=== PATIENT | female | born 1970 | race American Indian/Alaskan Native ===

== ENCOUNTER 2017-02-15 20:17 | Emergency (ER) | payer BC ==
[2017-02-16] MEDS ORDERED: DECADRON IV ONE ×2 (00:49→00:52)
[2017-02-16] MEDS ORDERED: TORADOL IV ONE (00:49)
[2017-02-16] MEDS ORDERED: NACL 0.9% 1000 ML 1,000 ML IV ONE (00:49)
[2017-02-16] MEDS ORDERED: MORPHINE IV ONE (00:49)
[2017-02-16] MEDS ORDERED: BENADRYL IV ONE (00:49)
[2017-02-16] MEDS ORDERED: REGLAN IV ONE (00:51)
[2017-02-16 02:33] VITALS: BP 132/80
--- NOTE | 2017-02-16 03:18 | Emergency Department Report ---
HPI - General Chief Complaint: Allergic Reaction ED Past Medical Hx - Past Medical History Hx Hypertension: Yes Additional medical history: lupus. MIXED CONNECTIVE TISSUE DISEASE. OBESITY - Surgical History Additional Surgical History: TUBAL LIGATION. HYSTERECTOMY. . KIDNEY BIOPSY - Social History Smoking Status: Never Smoker Substance Use Type: None - Medications Home Medications: Home Medications Medication Instructions Recorded Confirmed Last Taken Type Azithromycin [Zithromax TAB] 500 mg PO QDAY #3 tablet 03/25/15 Unknown Rx Prednisone [predniSONE 10 mg 10 mg PO .TAPER #1 tab.ds.pk 03/25/15 Unknown Rx (6-Day Pack, 21 Tabs)] hydrOXYzine PAMOATE [Vistaril] 25 mg PO Q6HR PRN #10 capsule 03/25/15 Unknown Rx oxyCODONE /ACETAMINOPHEN [Percocet 1 tab PO Q6HR PRN #14 tablet 03/25/15 Unknown Rx 5/325] methylPREDNISolone [Medrol] 4 mg PO QDAY #1 tab.ds.pk 10/06/15 Unknown Rx oxyCODONE /ACETAMINOPHEN [Percocet 1 tab PO Q6HR PRN #10 tablet 10/06/15 Unknown Rx 5/325] ED Review of Systems ROS: Stated complaint: POSS ALLERGIC REACTION/LIPS SWOLLEN/THROAT SWELLIN Other details as noted in HPI Physical Exam - Physical Exam Vital Signs: Vital Signs 02/15/17 02/16/17 02/16/17 20:39 01:30 02:32 Temperature 99.8 F H 98.2 F Pulse Rate 90 90 Respiratory 18 16 16 Rate Blood Pressure 162/106 Blood Pressure 132/80 [Left] O2 Sat by Pulse 99 96 Oximetry ED Course Vital Signs 02/15/17 02/16/17 02/16/17 20:39 01:30 02:32 Temperature 99.8 F H 98.2 F Pulse Rate 90 90 Respiratory 18 16 16 Rate Blood Pressure 162/106 Blood Pressure 132/80 [Left] O2 Sat by Pulse 99 96 Oximetry Critical care attestation.: If time is entered above; I have spent that time in minutes in the direct care of this critically ill patient, excluding procedure time. ED Disposition Condition: Stable Referrals: CY NICHOLSON MD [Primary Care Provider] - 3-5 Days
--- NOTE | 2017-02-16 03:19 | Emergency Department Report ---
ED Allergic Reaction HPI - General Chief complaint: Allergic Reaction Stated complaint: POSS ALLERGIC REACTION/LIPS SWOLLEN/THROAT SWELLIN Source: patient Mode of arrival: Ambulatory Limitations: No Limitations - History of Present Illness Initial Comments: 46 year old female presents to ED with facial/lip swelling x1 day. patient states she is unsure why she is having allergic reaction. patient is stable, neurologically intact and in no acute distress. patient denies diff breathing. MD Complaint: allergic reaction, facial swelling -: Sudden Exposure: unknown Symptoms: facial swelling, lip swelling. denies: difficulty swallowing, difficulty breathing, syncopy, dizziness, nausea, vomiting Severity: mild Treatment Prior to Arrival: benadryl - Related Data Previous Rx's Medication Instructions Recorded Last Taken Type Azithromycin [Zithromax TAB] 500 mg PO QDAY #3 tablet 03/25/15 Unknown Rx Prednisone [predniSONE 10 mg 10 mg PO .TAPER #1 tab.ds.pk 03/25/15 Unknown Rx (6-Day Pack, 21 Tabs)] hydrOXYzine PAMOATE [Vistaril] 25 mg PO Q6HR PRN #10 capsule 03/25/15 Unknown Rx oxyCODONE /ACETAMINOPHEN [Percocet 1 tab PO Q6HR PRN #14 tablet 03/25/15 Unknown Rx 5/325] methylPREDNISolone [Medrol] 4 mg PO QDAY #1 tab.ds.pk 10/06/15 Unknown Rx oxyCODONE /ACETAMINOPHEN [Percocet 1 tab PO Q6HR PRN #10 tablet 10/06/15 Unknown Rx 5/325] Allergies Allergy/AdvReac Type Severity Reaction Status Date / Time acetaminophen [From Lortab] Allergy Itching Verified 10/06/15 10:33 cephalexin monohydrate Allergy Itching Verified 02/15/17 20:39 [From Keflex] ciprofloxacin [From Cipro] Allergy Rash Verified 02/15/17 20:39 ciprofloxacin HCl Allergy Rash Verified 02/15/17 20:39 [From Cipro] clindamycin Allergy Rash Verified 10/06/15 10:33 doxycycline Allergy Rash Verified 02/15/17 20:39 hydrocodone bitartrate Allergy Itching Verified 10/06/15 10:33 [From Lortab] prednisone Allergy Unknown Verified 10/06/15 10:33 Sulfa (Sulfonamide Allergy Swelling Verified 10/06/15 10:33 Antibiotics) aspartame AdvReac Unknown Verified 10/06/15 10:33 erythromycin base AdvReac Rash Verified 10/06/15 10:33 red dye AdvReac CHEST HURTS Verified 10/06/15 10:33 ED Review of Systems ROS: Stated complaint: POSS ALLERGIC REACTION/LIPS SWOLLEN/THROAT SWELLIN Other details as noted in HPI Constitutional: denies: chills Eyes: denies: eye pain, eye discharge, vision change ENT: other (lip swelling). denies: ear pain, throat pain Respiratory: denies: cough, shortness of breath, wheezing Cardiovascular: denies: chest pain, palpitations Endocrine: no symptoms reported Gastrointestinal: denies: abdominal pain, nausea, vomiting, diarrhea Genitourinary: denies: urgency, dysuria, discharge Musculoskeletal: denies: back pain, joint swelling, arthralgia Skin: denies: rash, lesions Neurological: denies: weakness, numbness, paresthesias, confusion, abnormal gait , vertigo Psychiatric: denies: anxiety, depression Hematological/Lymphatic: denies: easy bleeding, easy bruising ED Past Medical Hx - Past Medical History Hx Hypertension: Yes Additional medical history: lupus. MIXED CONNECTIVE TISSUE DISEASE. OBESITY - Surgical History Additional Surgical History: TUBAL LIGATION. HYSTERECTOMY. . KIDNEY BIOPSY - Social History Smoking Status: Never Smoker Substance Use Type: None - Medications Home Medications: Home Medications Medication Instructions Recorded Confirmed Last Taken Type Azithromycin [Zithromax TAB] 500 mg PO QDAY #3 tablet 03/25/15 Unknown Rx Prednisone [predniSONE 10 mg 10 mg PO .TAPER #1 tab.ds.pk 03/25/15 Unknown Rx (6-Day Pack, 21 Tabs)] hydrOXYzine PAMOATE [Vistaril] 25 mg PO Q6HR PRN #10 capsule 03/25/15 Unknown Rx oxyCODONE /ACETAMINOPHEN [Percocet 1 tab PO Q6HR PRN #14 tablet 03/25/15 Unknown Rx 5/325] methylPREDNISolone [Medrol] 4 mg PO QDAY #1 tab.ds.pk 10/06/15 Unknown Rx oxyCODONE /ACETAMINOPHEN [Percocet 1 tab PO Q6HR PRN #10 tablet 10/06/15 Unknown Rx 5/325] ED Physical Exam - General Limitations: No Limitations General appearance: alert, in no apparent distress - Head Head exam: Present: atraumatic, normocephalic - Eye Eye exam: Present: normal appearance, EOMI Pupils: Present: normal accommodation - ENT ENT exam: Present: normal exam, mucous membranes moist, other (no facial/oral/ tonsilar swelling noted on examination. patient states she took benadryl prior to arrival and swelling has decreased) - Neck Neck exam: Present: normal inspection, full ROM. Absent: tenderness - Respiratory Respiratory exam: Present: normal lung sounds bilaterally. Absent: respiratory distress, wheezes, rales, rhonchi, stridor, decreased breath sounds - Cardiovascular Cardiovascular Exam: Present: regular rate, normal rhythm. Absent: systolic murmur, diastolic murmur, rubs, gallop - GI/Abdominal GI/Abdominal exam: Present: soft, normal bowel sounds. Absent: distended, tenderness, guarding - Extremities Exam Extremities exam: Present: normal inspection, full ROM. Absent: tenderness - Back Exam Back exam: Present: normal inspection, full ROM. Absent: tenderness - Neurological Exam Neurological exam: Present: alert, oriented X3, normal gait - Psychiatric Psychiatric exam: Present: normal affect, normal mood - Skin Skin exam: Present: warm, dry, intact, normal color. Absent: rash ED Course Vital Signs 02/15/17 02/16/17 02/16/17 20:39 01:30 02:32 Temperature 99.8 F H 98.2 F Pulse Rate 90 90 Respiratory 18 16 16 Rate Blood Pressure 162/106 Blood Pressure 132/80 [Left] O2 Sat by Pulse 99 96 Oximetry ED Medical Decision Making - Medical Decision Making 46 year old female presents to ED with facial/oral swelling x1 day. patient states swelling has decreased prior to arrival to ED today due to her taking OTC benadryl. patient states she has history of migraines, and lupus.patient is stable, neurologically intact and in no acute distress. patient has had IV steroids, IV reglan, IV benadryl, IV toradol and IV saline. patient states she feels better and is ready to go home. Critical care attestation.: If time is entered above; I have spent that time in minutes in the direct care of this critically ill patient, excluding procedure time. ED Disposition Clinical Impression: Allergic reaction Qualifiers: Encounter type: initial encounter Qualified Code(s): T78.40XA - Allergy, unspecified, initial encounter Disposition: DC-01 TO HOME OR SELFCARE Is pt being admited?: No Does the pt Need Aspirin: No Condition: Stable Instructions: Allergies (ED) Referrals: CY NICHOLSON MD [Primary Care Provider] - 3-5 Days
== END 2017-02-16 03:29 | disposition home or self-care (01) ==
LOC: ED 20:17
DX: T78.40XA Allergy, unspecified, initial encounter (principal); I10 Essential (primary) hypertension; Z98.51 Tubal ligation status; Z90.710 Acquired absence of both cervix and uterus; Z88.2 Allergy status to sulfonamides; Z88.1 Allergy status to other antibiotic agents; Z88.8 Allergy status to other drugs, medicaments and biological substances
CPT/HCPCS: 96361; 96374; 96375; 99282; J1100; J1200; J1885; J2765; J7030

== ENCOUNTER 2017-02-20 10:41 | Emergency (ER) | payer BC ==
[2017-02-20 11:36] LABS: Basophils % (Auto) 0.8 % (0.0-1.8); Eosinophils % (Auto) 1.3 % (0.0-4.3); Hematocrit 36.5 % (30.3-42.9); Hemoglobin 12.2 gm/dl (10.1-14.3); Mean Corpuscular HGB Conc 33 % (30-34); Mean Corpuscular Hemoglobin 29 pg (28-32); Mean Corpuscular Volume 88 fl (79-97); Platelet Count 197 K/mm3 (140-440); Red Blood Count 4.14 M/mm3 (3.65-5.03); Red Cell Distribution Width 14.2 % (13.2-15.2); White Blood Count 6.3 K/mm3 (4.5-11.0)
[2017-02-20 11:53] LABS: Alanine Aminotransferase 17 units/L (7-56); Albumin 4.5 g/dL (3.9-5); Albumin/Globulin Ratio 1.3 %; Alkaline Phosphatase 81 units/L (35-129); Anion Gap 18 mmol/L; Blood Urea Nitrogen 8 mg/dL (7-17); Calcium 9.7 mg/dL (8.4-10.2); Carbon Dioxide 29 mmol/L (22-30); Chloride 100.1 mmol/L (98-107); Glucose 151 mg/dL (65-100); Potassium 3.3 mmol/L (3.6-5.0); Sodium 144 mmol/L (137-145); Total Protein 8.1 g/dL (6.3-8.2)
[2017-02-20 11:57] LABS: Urine Drugs of Abuse Note Disclamer
[2017-02-20 12:11] LABS: Bacteria,Urine 1+ /HPF (Negative); Bilirubin,Urine NEG (Negative); Blood,Urine NEG (Negative); Ketones,Urine NEG (Negative); Leukocyte Esterase,Urine NEG (Negative); Mucus,Urine FEW /HPF; Nitrite,Urine NEG (Negative); Protein,Urine <15 mg/dL mg/dL (Negative); Urobilinogen,Urine < 2.0 mg/dL (<2.0)
[2017-02-20 15:29] VITALS: BP 191/110
== END 2017-02-20 19:30 | disposition left against medical advice (07) ==
LOC: ED 10:41
DX: R03.0 Elevated blood-pressure reading, without diagnosis of hypertension (principal); R07.9 Chest pain, unspecified; Z53.21 Procedure and treatment not carried out due to patient leaving prior to being seen by health care provider
CPT/HCPCS: 36415; 80053; 80307; 81001; 82140; 83735; 84443; 85025; 93005; 93010; G0480; 80320

== ENCOUNTER 2017-11-17 13:09 | Emergency (ER) | payer SELFPAY ==
[2017-11-17 16:10] LABS: Bilirubin,Urine NEG (Negative); Blood,Urine NEG (Negative); Color,Urine Amber (Yellow); Mucus,Urine 2+ /HPF; Urobilinogen,Urine < 2.0 mg/dL (<2.0)
[2017-11-17] MEDS ORDERED: DECADRON IV ONE (19:03)
[2017-11-17] MEDS ORDERED: TORADOL IV ONE (19:03)
[2017-11-17] MEDS ORDERED: BENADRYL IV ONE ×2 (19:05→20:28)
--- NOTE | 2017-11-17 19:41 | Cat Scan Report ---
FINAL REPORT EXAM: CT ABDOMEN PELVIS WO CON HISTORY: rlq pelvic pain TECHNIQUE: Spiral CT scanning of the abdomen and pelvis. No oral or IV contrast administered. Multiplanar reformations. PRIORS: 06 October 2015. FINDINGS: Abdomen: Examination limited due to lack of contrast administration. Visualized lung bases show mild atelectatic change or scarring in the right lung base. No radiopaque gallstones. Liver grossly unremarkable. Spleen grossly unremarkable. Pancreas shows diffuse fatty infiltration without focal abnormality. Kidneys grossly unremarkable. Adrenal glands grossly unremarkable. Pelvis: Bowel grossly unremarkable, with moderate-large amount of retained stool. Appendix within normal limits. No significant free peritoneal fluid or loculated fluid collection. Abdominal aorta non-aneurysmal. Uterus surgically absent. IMPRESSION: 1. No acute findings. 2. Findings suggestive of constipation.
--- NOTE | 2017-11-17 20:27 | Emergency Department Report ---
HPI - General Chief Complaint: Urogenital-Female Time Seen by Provider: 11/17/17 19:02 - HPI HPI: This is a 47-year-old female with a history of lupus who presents to ED complaining of right lower pelvic pain 2 days. Patient states pain is localized to the low pelvic region. Patient states she has had this pain before due to her lupus flareup and takes tramadol for the pain. Patient states that she has been taking tramadol with no relief. She denies fever/chills/nausea vomiting/diarrhea/chest pain/shortness of breath ED Past Medical Hx - Past Medical History Hx Hypertension: Yes Hx Headaches / Migraines: Yes Hx Seizures: Yes Additional medical history: lupus; MIXED CONNECTIVE TISSUE DISEASE ; psoriatic arthritis, Ankylosing spondylitis. OBESITY - Surgical History Past Surgical History?: Yes Additional Surgical History: TUBAL LIGATION. HYSTERECTOMY. . KIDNEY BIOPSY - Social History Smoking Status: Never Smoker Substance Use Type: None - Medications Home Medications: Home Medications Medication Instructions Recorded Confirmed Last Taken Type Azithromycin [Zithromax TAB] 500 mg PO QDAY #3 tablet 03/25/15 Unknown Rx Prednisone [predniSONE 10 mg 10 mg PO .TAPER #1 tab.ds.pk 03/25/15 Unknown Rx (6-Day Pack, 21 Tabs)] hydrOXYzine PAMOATE [Vistaril] 25 mg PO Q6HR PRN #10 capsule 03/25/15 Unknown Rx methylPREDNISolone [Medrol] 4 mg PO QDAY #1 tab.ds.pk 10/06/15 Unknown Rx oxyCODONE /ACETAMINOPHEN [Percocet 1 tab PO Q6HR PRN #10 tablet 10/06/15 Unknown Rx 5/325] Amoxicillin [Amoxicillin TAB] 875 mg PO BID #10 tablet 11/17/17 Unknown Rx Docusate Sodium [Colace] 100 mg PO BID PRN #30 capsule 11/17/17 Unknown Rx metroNIDAZOLE 0.75% [Vandazole 1 applicator VG QHS #1 tube 11/17/17 Unknown Rx 0.75% VAGINAL] oxyCODONE /ACETAMINOPHEN [Percocet 1 tab PO Q6HR PRN #10 tablet 11/17/17 Unknown Rx 5/325 mg] ED Review of Systems ROS: Stated complaint: PELVIC PAIN Other details as noted in HPI Constitutional: denies: chills, fever Eyes: denies: eye pain, eye discharge, vision change ENT: denies: ear pain, throat pain Respiratory: denies: cough, shortness of breath, wheezing Cardiovascular: denies: chest pain, palpitations Endocrine: no symptoms reported Gastrointestinal: denies: abdominal pain, nausea, vomiting, diarrhea Genitourinary: frequency. denies: urgency, dysuria, hematuria, discharge Musculoskeletal: denies: back pain, joint swelling, arthralgia Skin: denies: rash, lesions, pruritus Neurological: denies: headache, weakness, paresthesias Psychiatric: denies: anxiety, depression Hematological/Lymphatic: denies: easy bleeding, easy bruising Physical Exam - Physical Exam Vital Signs: Vital Signs 11/17/17 13:46 Temperature 98.2 F Pulse Rate 94 H Respiratory 18 Rate Blood Pressure 152/91 O2 Sat by Pulse 100 Oximetry Physical Exam: GENERAL: Alert and oriented x3, no apparent distress, Normal Gait, atraumatic. HEAD: Head is normocephalic and a-traumatic. MOUTH:Mouth is well hydrated and without lesions. Tonsils nonerythematous or swollen, Uvula midline, Tongue not elevated. Mucous membranes are moist. Posterior pharynx clear, no exudate or lesions. Patent airways. NECK: Supple. Non edematous, No carotid bruits. No lymphadenopathy or thyromegaly. No C-spine tenderness LUNGS: Symetrical with respiration, No wheezing, no rales or crackles, CTAB. HEART: S1, S2 present, regular rate and rhythm without murmur, no rubs, no gallops. Non tender to palpation ABDOMEN: No organomegaly was noted,Positive bowel sounds, soft, and non- distended. . Nontender to palpation on all Quadrants, NO CVA tenderness. GENITOURINARY: External genitalia without erythema, exudate or discharge. SKIN: Warm and dry, No lesions, No ulceration or induration present. ED Course Vital Signs 11/17/17 13:46 Temperature 98.2 F Pulse Rate 94 H Respiratory 18 Rate Blood Pressure 152/91 O2 Sat by Pulse 100 Oximetry ED Medical Decision Making - Radiology Data Radiology results: report reviewed, image reviewed FINDINGS: Abdomen: Examination limited due to lack of contrast administration. Visualized lung bases show mild atelectatic change or scarring in the right lung base. No radiopaque gallstones. Liver grossly unremarkable. Spleen grossly unremarkable. Pancreas shows diffuse fatty infiltration without focal abnormality. Kidneys grossly unremarkable. Adrenal glands grossly unremarkable. Pelvis: Bowel grossly unremarkable, with moderate-large amount of retained stool. Appendix within normal limits. No significant free peritoneal fluid or loculated fluid collection. Abdominal aorta non-aneurysmal. Uterus surgically absent. IMPRESSION: 1. No acute findings. 2. Findings suggestive of constipation. Transcribed By: [facility] Dictated By: GERARDO DARBY MD Electronically Authenticated By: GERARDO DARBY MD Signed Date/Time: 11/17/171936 - Medical Decision Making 47-year-old female presents with chronic pain ED course: Patient received pain medication as well as ENT. CT scan shows no acute findings see reported above All last within normal limits, urinalysis shows a possible UTI I discussed his findings with the patient. Discussed the patient to follow up with primary care physician. Patient sent him on antibiotics and some pain Vital signs are normal. Patient is in no acute or respiratory distress.. Critical care attestation.: If time is entered above; I have spent that time in minutes in the direct care of this critically ill patient, excluding procedure time. ED Disposition Clinical Impression: UTI (urinary tract infection) Qualifiers: Urinary tract infection type: acute cystitis Hematuria presence: without hematuria Qualified Code(s): N30.00 - Acute cystitis without hematuria Constipation Qualifiers: Constipation type: unspecified constipation type Qualified Code(s): K59.00 - Constipation, unspecified Disposition: DC-01 TO HOME OR SELFCARE Is pt being admited?: No Does the pt Need Aspirin: No Condition: Stable Instructions: Constipation (ED), Urinary Tract Infection in Women (ED), High Fiber Diet (ED), Chronic Pelvic Pain in Women (ED) Additional Instructions: Make sure to follow up with the primary care physician as discussed. Take all your medications as you've been prescribed. If you have any worsening symptoms or develop new symptoms please return to ED immediately. Prescriptions: metroNIDAZOLE 0.75% [Vandazole 0.75% VAGINAL] 1 applicator VG QHS #1 tube Amoxicillin [Amoxicillin TAB] 875 mg PO BID #10 tablet Docusate Sodium [Colace] 100 mg PO BID PRN #30 capsule PRN Reason: Constipation oxyCODONE /ACETAMINOPHEN [Percocet 5/325 mg] 1 tab PO Q6HR PRN #10 tablet PRN Reason: Pain Referrals: CY NICHOLSON MD [Primary Care Provider] - 3-5 Days Forms: Accompanied Note, Work/School Release Form(ED) Time of Disposition: 20:45
[2017-11-18 05:39] VITALS: BP 168/98
== END 2017-11-17 22:00 | disposition home or self-care (01) ==
LOC: ED 13:09
DX: N39.0 Urinary tract infection, site not specified (principal); K59.00 Constipation, unspecified; I10 Essential (primary) hypertension; G43.909 Migraine, unspecified, not intractable, without status migrainosus
CPT/HCPCS: 74176; 81001; 96374; 96375; 96376; 99284; J1100; J1200; J1885